=== PATIENT | male | born 1950 | race Caucasian/White ===

== ENCOUNTER 2020-03-04 12:43 | Day surgery (SDC) | payer MEDICARE, OTHER ==
[2020-03-04] VITALS (9 sets, daily range): BP systolic 117–151; BP diastolic 53–88; PULSE 54–67; TEMP 97.9–98.5
[~2020-03-04] VITALS: Ht 188 cm; Wt 138.3 kg
[2020-03-04] MEDS ORDERED: XARELTO20 MG PO (14:19)
[2020-03-04] MEDS ORDERED: GLUCOPHAGE850 MG/TAB PO (14:19)
[2020-03-04] MEDS ORDERED: ASPIRIN 81M81 MG/TA2 PO (14:20)
[2020-03-04] MEDS ORDERED: COZAAR 50MG50 MG/TAB PO (14:21)
[2020-03-04] MEDS ORDERED: LIPITOR20 MG PO (14:21)
[2020-03-04] MEDS ORDERED: GLUCOTROL 5M5 MG/TAB PO (14:22)
[2020-03-04] MEDS ORDERED: TOPROL XL 50MG50 MG PO (14:23)
--- NOTE | 2020-03-04 14:25 | NUR ---
TO RM 6 AT 1312- CALL LIGHT IN REACH
--- NOTE | 2020-03-04 14:42 | NUR ---
BLOOD SUGAR 86- HUNG D5 1/2 NS AT 50 PER ORDER FROM Jeremy KIRAN WHIZZER OPERATOR
--- NOTE | 2020-03-04 19:11 | NUR ---
Patient doing well post op, tolerating clear liquid diet. Post op fluids infusing per orders, Post op VSS. Fitzgerald to DD with clear urine present,CBI infusing at a very slow rate. Denies pain at this time. Denies further needs at this time. Will report off to assistant casino shift manager.
[2020-03-05 00:12] VITALS: BP 108/52; PULSE 56; TEMP 98.2
[2020-03-05 04:12] VITALS: BP 119/83; PULSE 72; TEMP 98.1
--- NOTE | 2020-03-05 04:24 | NUR ---
Pt sitting in chair at bedside. Has CBI infusing at slow rate, urine is pink in tubing. Denies pain. SL to left forearm without redness or swelling. Is alert and oriented x4.
[2020-03-05 08:34] VITALS: BP 118/64; PULSE 91; TEMP 97.9
--- NOTE | 2020-03-05 09:00 | NUR ---
Patient sitting up in recliner. Alert and oriented x 3. Assessment complete. Denies pain at this time. Fitzgerald to DD with CBI infusing at very slow rate. Urine light pink to peach in color. Denies further needs at this time.
[2020-03-05 11:28] VITALS: BP 193/95; PULSE 93; TEMP 97.7
--- NOTE | 2020-03-05 11:38 | NUR ---
Reviewed with pt the use of mitomycin to treat bladder tumors, how it is administered, precautions, and side effects. Pt reviewed printed information provided and questions were invited and answered. Pt was reminded to change position about every 15 minutes to allow coverage of bladder. Consent for this treatment was signed and pt did report that Dr Burciaga had talked with him briefly about this before his surgery. Fitzgerald catheter was drained and 1700ml of pink urine was emptied. Fitzgerald catheter was clamped and mitomycin was instilled observing protocal and chemotherapy procedures. Maria M Garcia RN did verify with me dose, route, dwell time and volume by comparing label with submitted order prior to administration. CBI was stopped prior to administration. at 11am, pt reported that he was tolerating this well and again was reminded to notify staff if becomes unable to tolerate, otherwise will release at 1220.
--- NOTE | 2020-03-05 13:37 | NUR ---
Mitomycin was released from bladder by unclamping catheter at 1220 and CBI was restarted. Pt tolerated dwell time well and preferred to be up walking/standing as part of his repositioning. Urine at that time was purple/pink and with no observed clots. CBI ran for 1 hour and then was stopped. Duffy catheter was removed per order recieved by Ashley from Dr Burciaga. Chemotherapy precautions were maintained and duffy bag with urine was placed in yellow container along with other contaminated items after being bagged. Pt requested a urinal soon after duffy was dc'd and report was given to Ashley CHAN for follow up with 6 bottle routine.
--- NOTE | 2020-03-05 13:41 | NUR ---
Chemotherapy precautions are posted at the door of pt's room and chemotherapy cart and yellow container remain just outside door. They were intially placed with instillation of mitomycin.
[2020-03-05 16:10] VITALS: BP 110/59; PULSE 67; TEMP 97.7
--- NOTE | 2020-03-05 17:26 | NUR ---
Patient has done well throughout the day, minimal needs. Voiding without difficulties. Voiding clear pink urine. Discharge education provided to patient. Educated on when to call provider. Educated on activity restrictions and increasing fluid intake. Denies further needs at this time. Patient ambulated out with surgical staff
== END 2020-03-05 17:30 | disposition home or self-care (01) ==
LOC: SDCO 12:43 → SURG 17:30 → SDCO 03-05 17:30
DX: C67.9 Malignant neoplasm of bladder, unspecified (principal); D09.0 Carcinoma in situ of bladder; N30.21 Other chronic cystitis with hematuria; E11.9 Type 2 diabetes mellitus without complications; E78.00 Pure hypercholesterolemia, unspecified; I11.9 Hypertensive heart disease without heart failure; I48.91 Unspecified atrial fibrillation; G47.33 Obstructive sleep apnea (adult) (pediatric); Z20.822 Contact with and (suspected) exposure to COVID-19; R97.20 Elevated prostate specific antigen [PSA]; F17.210 Nicotine dependence, cigarettes, uncomplicated; Z79.01 Long term (current) use of anticoagulants; Z79.899 Other long term (current) drug therapy; Z79.82 Long term (current) use of aspirin; Z95.1 Presence of aortocoronary bypass graft; Z79.84 Long term (current) use of oral hypoglycemic drugs
CPT/HCPCS: OP; J0690; J2250; J2704; J2765; J3010; J7030; J9280